=== PATIENT | female | born 1940 | race Caucasian/White ===

== ENCOUNTER 2019-02-15 09:48 | Inpatient (IN) | payer OTHER ==
[~2019-02-15] VITALS: Ht 157.5 cm; Wt 42.6 kg
[2019-02-15] MEDS ORDERED: METFORMIN HCL1000 M1 (10:19)
[2019-02-15] MEDS ORDERED: COZAAR50 MG (10:19)
[2019-02-15] MEDS ORDERED: SYNTHROID50 MCG (10:19)
[2019-02-21] MEDS ORDERED: LEVAQUIN500 MG PO (08:29)
== END 2019-02-21 11:18 | disposition home or self-care (01) | DRG 872 ==
LOC: ER 09:48 → SEC-K 19:56 → MEDJ 19:56
PROVIDERS: ADMIT Internal Medicine
PROC: BW28ZZZ Computerized Tomography (CT Scan) of Head (ICD-10-PCS; principal; 2019-02-15)
PROC: BW21ZZZ Computerized Tomography (CT Scan) of Abdomen and Pelvis (ICD-10-PCS; 2019-02-16)
DX: A41.51 Sepsis due to Escherichia coli [E. coli] (principal); N39.0 Urinary tract infection, site not specified; B96.29 Other Escherichia coli [E. coli] as the cause of diseases classified elsewhere; R53.1 Weakness; E11.9 Type 2 diabetes mellitus without complications; I10 Essential (primary) hypertension; E03.8 Other specified hypothyroidism

== ENCOUNTER 2021-01-12 12:04 | Emergency (ER) | payer OTHER ==
[~2021-01-12] VITALS: Ht 157.5 cm; Wt 42.6 kg
[~2021-01-12 12:04] MED LIST: COZAAR50 MG; LEVAQUIN500 MG PO; METFORMIN HCL1000 M1; SYNTHROID50 MCG
[2021-01-12] MEDS ORDERED: FISH OIL 1,0001 EAC4 PO (12:16)
[2021-01-12] MEDS ORDERED: PRAVASTATIN SOD20 MG PO (12:16)
[2021-01-12] MEDS ORDERED: GABAPENTIN800 M1 PO (12:16)
[2021-01-12] MEDS ORDERED: METFORMIN HCL1000 M3 PO (12:17)
[2021-01-12] MEDS ORDERED: ALPHA LIPOIC A200 MG PO (12:17)
[2021-01-12] MEDS ORDERED: Q-SORB CO Q-10200 MG PO (12:17)
== END 2021-01-12 14:57 | disposition home or self-care (01) ==
LOC: ER 12:04
DX: M54.89 Other dorsalgia (principal); D64.89 Other specified anemias; N39.0 Urinary tract infection, site not specified; S20.221S Contusion of right back wall of thorax, sequela; W22.8XXS Striking against or struck by other objects, sequela

== ENCOUNTER 2021-01-28 14:08 | Emergency (ER) | payer OTHER ==
[~2021-01-28] VITALS: Ht 154.9 cm; Wt 42.2 kg
[~2021-01-28 14:08] MED LIST changes: +ALPHA LIPOIC A200 MG PO; +FISH OIL 1,0001 EAC4 PO; +GABAPENTIN800 M1 PO; +METFORMIN HCL1000 M3 PO; +PRAVASTATIN SOD20 MG PO; +Q-SORB CO Q-10200 MG PO
[2021-01-28] MEDS ORDERED: DICLOFENAC SODI75 MG PO (18:01)
== END 2021-01-28 18:37 | disposition home or self-care (01) ==
LOC: ER 14:08
DX: M54.5 Low back pain (principal)

== ENCOUNTER 2021-02-05 14:35 | Inpatient (IN) | payer OTHER ==
[~2021-02-05] VITALS: Ht 157.5 cm; Wt 42.2 kg
[~2021-02-05 14:35] MED LIST changes: +DICLOFENAC SODI75 MG PO
== END 2021-02-26 16:30 | disposition expired | DRG 191 ==
LOC: ER 14:35 → MEDI 18:10 → SEC-K 18:10 → MEDI 18:36
PROVIDERS: ADMIT Internal Medicine; ATTEND Internal Medicine
PROC: 3E0F7SF Introduction of Other Gas into Respiratory Tract, Via Natural or Artificial Opening (ICD-10-PCS; 2021-02-05)
PROC: 4A12X4Z Monitoring of Cardiac Electrical Activity, External Approach (ICD-10-PCS; 2021-02-06)
PROC: 0W9930Z Drainage of Right Pleural Cavity with Drainage Device, Percutaneous Approach (ICD-10-PCS; principal; 2021-02-07)
PROC: 0WP930Z Removal of Drainage Device from Right Pleural Cavity, Percutaneous Approach (ICD-10-PCS; 2021-02-18)
PROC: 0W9930Z Drainage of Right Pleural Cavity with Drainage Device, Percutaneous Approach (ICD-10-PCS; 2021-02-18)
PROC: 5A09457 Assistance with Respiratory Ventilation, 24-96 Consecutive Hours, Continuous Positive Airway Pressure (ICD-10-PCS; 2021-02-23)
DX: J44.1 Chronic obstructive pulmonary disease with (acute) exacerbation (principal); C78.7 Secondary malignant neoplasm of liver and intrahepatic bile duct; E22.2 Syndrome of inappropriate secretion of antidiuretic hormone; C34.82 Malignant neoplasm of overlapping sites of left bronchus and lung; C34.81 Malignant neoplasm of overlapping sites of right bronchus and lung; Z20.822 Contact with and (suspected) exposure to COVID-19; F17.200 Nicotine dependence, unspecified, uncomplicated; E03.8 Other specified hypothyroidism; D64.9 Anemia, unspecified; I11.9 Hypertensive heart disease without heart failure; Z66 Do not resuscitate; E87.6 Hypokalemia; E11.65 Type 2 diabetes mellitus with hyperglycemia